=== PATIENT | female | born 1965 | race Caucasian/White ===

== ENCOUNTER 2022-05-14 09:09 | Emergency (ER) | payer SELFPAY ==
--- NOTE | ~2022-05-14 | XR_ITS ---
EXAMINATION: XR chest 2V DATE: 05/14/2022 11:11 INDICATION: Shortness of breath. Hacking cough. Weakness and congestion. TECHNIQUE: PA and lateral views of the chest were obtained. COMPARISON: Chest radiograph dated 04/24/2012 FINDINGS: Bronchial wall thickening and airspace opacities in the bilateral lower lung zones. No pleural effusi on or pneumothorax. The cardiomediastinal silhouette is normal. Moderate thoracic spondylosis with ch ronic mild anterior wedging of a few mid and lower thoracic vertebral bodies. IMPRESSION: 1. Puncture wall thickening and opacities in the bilateral lower lung zones consistent with pneumonia versus pulmonary edema. Reviewed, dictated and finalized at location [facility]. [employer] IMPRESSION: 1. Puncture wall thickening and opacities in the bilateral lower lung zones con sistent with pneumonia versus pulmonary edema.
[2022-05-14 09:49] VITALS: BP 131/93; PULSE 120; RESP 22; TEMP 38.5; O2SAT 96
[2022-05-14 10:43] LABS: Influenza A QL RT-PCR Negative (Negative); Influenza B QL RT-PCR Negative (Negative); SARS-CoV-2 RNA PCR Negative
[2022-05-14 11:27] VITALS: BP 123/60; PULSE 98; RESP 17; TEMP 37.1; O2SAT 96
[2022-05-14 11:28] VITALS: O2SAT 97
--- NOTE | 2022-05-14 11:49 | ED.GENADULT ---
HPI - General Adult General Chief complaint: Upper Respiratory Infection Stated complaint: cough Time Seen by Provider: 05/14/22 10:46 History of Present Illness HPI narrative: 57-year-old female presenting to the emergency department for evaluation of cough congestion fevers and body aches and has been ongoing since Saturday. Patient states last week she began developing symptoms. Related Data Allergies Allergy/AdvReac Type Severity Reaction Status Date / Time No Known Allergies Allergy Verified 05/14/22 11:28 Review of Systems Review of Systems: CONSTITUTIONAL: Denies fever, chills, or sweats. EYES: Denies visual changes, redness, or discharge. ENT: Denies rhinorrhea, congestion, sore throat, or otalgia. CARDIOVASCULAR: Denies chest pain, palpitations, or edema. RESPIRATORY: See HPI GASTROINTESTINAL: Denies abdominal pain, nausea, vomiting, or diarrhea. GENITOURINARY: Denies dysuria or hematuria. SKIN: Denies rash or itching. MUSCULOSKELETAL: Denies back pain, joint pain, or myalgia. NEUROLOGIC: Denies headache, numbness, or weakness. Exam Narrative: APPEARANCE: Well appearing, no pain, no distress, well-nourished. HEAD: normocephalic, atraumatic. EYES: PERRLA/EOMI, conjunctivae clear. NOSE: Normal no drainage NECK: Supple. No adenopathy, no masses. RESPIRATORY: Cough congestion. Lungs clear to auscultation CARDIOVASCULAR: Regular rate and rhythm without murmurs rubs or gallops. ABDOMINAL: Soft, nontender, nondistended, normal bowel sounds MUSCULOSKELETAL: Moves all extremities. Strength/ROM intact, No edema, No calf tenderness. NEURO: Alert. Cranial nerves II through XII intact. Grossly intact SKIN: Warm, dry. Normal Color Course Course Emergency Course: X-ray showed evidence of pneumonia. Patient was negative for influenza and COVID. Patient is fully vaccinated for COVID and for flu. Patient was treated for a suspected bacterial pneumonia. Patient was started on Augmentin and azithromycin while in the emergency department. This medication will be continued at home. Patient was also provided albuterol inhaler and Tessalon Perles for symptom control. Patient was educated on reasons to return to the emergency department. All questions concerns were addressed. Vital Signs Vital signs: Vital Signs Temperature 101.3 F H 05/14/22 09:49 Pulse Rate 120 H 05/14/22 09:49 Respiratory Rate 22 H 05/14/22 09:49 Blood Pressure 131/93 H 05/14/22 09:49 Pulse Oximetry 96 05/14/22 09:49 Temperature 98.8 F 05/14/22 11:27 Pulse Rate 102 H 05/14/22 13:37 Respiratory Rate 20 05/14/22 13:37 Blood Pressure 135/82 05/14/22 13:37 Pulse Oximetry 94 05/14/22 13:37 Oxygen Delivery Room Air 05/14/22 11:28 Medical Decision Making Vital Signs Vital Signs: Vital Signs Temperature 101.3 F H 05/14/22 09:49 Pulse Rate 120 H 05/14/22 09:49 Respiratory Rate 22 H 05/14/22 09:49 Blood Pressure 131/93 H 05/14/22 09:49 Pulse Oximetry 96 05/14/22 09:49 Temperature 98.8 F 05/14/22 11:27 Pulse Rate 102 H 05/14/22 13:37 Respiratory Rate 20 05/14/22 13:37 Blood Pressure 135/82 05/14/22 13:37 Pulse Oximetry 94 05/14/22 13:37 Oxygen Delivery Room Air 05/14/22 11:28 Lab Data Labs: Lab Results 05/14/22 Range/Units 09:55 Influenza A (RT-PCR) Negative (Negative) Influenza B (RT-PCR) Negative (Negative) SARS-CoV-2 RNA (RT-PCR) Negative Discharge Plan Discharge Clinical Impression: Pneumonia Patient Disposition: Home, Self-Care Condition: Stable Instructions: Antibiotic Form, Pneumonia (ED) Additional Instructions: Antibiotic as directed until completed. Tylenol and ibuprofen for fever. Albuterol as needed for shortness of breath. Tessalon Perles as needed for cough. Have close follow-up with your primary care physician. Prescriptions: New amoxicillin-pot clavulanate 875-125 mg tablet 1 tablet PO Q12H 7 Days Qty: 14 0
[2022-05-14] MEDS: AZITHROMYCIN 250 MG TABLET 500 MG PO (11:56)
[2022-05-14] MEDS: BENZONATATE 100 MG CAPSULE PO (12:01)
[2022-05-14] MEDS: AMOXICILLIN/CLAVULANATE K 875-125 MG TAB 1 TABLET PO (12:01)
[2022-05-14] MEDS: ALBUTEROL SULFATE NEB 2.5 MG/3 ML INH 5 MG INHALATION (12:09)
[2022-05-14 12:13] VITALS: PULSE 100; RESP 20
[2022-05-14 12:24] VITALS: PULSE 104; RESP 20
[2022-05-14 13:37] VITALS: BP 135/82; PULSE 102; RESP 20; O2SAT 94
== END 2022-05-14 13:39 | disposition home or self-care (01) ==
PROVIDERS: Emergency Provider Emergency Medicine; PCP Internal Medicine
DX: J18.9 Pneumonia, unspecified organism (principal); Z20.822 Contact with and (suspected) exposure to COVID-19
CPT/HCPCS: 71046; 87636; 94640; 99283; A9270